=== PATIENT | female | born 1985 | race Caucasian/White ===

== ENCOUNTER 2018-10-17 20:29 | Emergency (ER) | payer BC, MEDICAID, OTHER ==
[2018-10-17] MEDS ORDERED: Sodium Chloride 0.9% 1,000 ML IV ONE (20:54)
[2018-10-17] MEDS ORDERED: Sodium Chloride 0.9% 10 ML Syringe FLUSH PRN (20:54)
--- NOTE | 2018-10-17 21:12 | EDM.PDOC ---
ED HPI GENERAL MEDICAL PROBLEM - General Chief Complaint: Syncope Stated Complaint: PASSED OUT Time Seen by Provider: 10/17/18 21:00 Source of Information: Reports: Patient, Family History Limitations: Reports: No Limitations - History of Present Illness INITIAL COMMENTS - FREE TEXT/NARRATIVE: Patient presents to the ED today with family, was out on boat this evening and reported she felt that she was going to "pass out". Patient then did, was lowered to the ground by her father, did not sustain any trauma. Patient c/o mild headache currently, family states she may have been out for a minimum of ten minutes, while she was, she had her fists clenched and was foaming at the mouth. Patient had has syncopal episodes in the past but none like this. Patient denies any seizure hx but has been a daily ETOH drinker until this past Friday and has not been feeling well since that time. Patient is not currently tremulous, she denies any intra oral injury, no incontinence of bowel/ bladder during today's event. Patient arrives here alert and oriented. Patient does take daily calcium, magnesium and potassium supplements. 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 ED EXAM, NEURO - Physical Exam Exam: See Below Exam Limited By: No Limitations General Appearance: Alert, WD/WN, No Apparent Distress Eye Exam: Bilateral Eye: EOMI, PERRL Ears: Normal External Exam, Normal Canal Nose: Normal Inspection Throat/Mouth: Normal Oropharynx, No Airway Compromise Head Exam: Atraumatic, Normocephalic Neck: Normal Inspection, Supple, Non-Tender. No: Tender Midline Respiratory/Chest: No Respiratory Distress, Lungs Clear, Normal Breath Sounds, Other (mild tenderness noted to left lower anterior rib region) Cardiovascular: Normal Peripheral Pulses, Tachycardia GI/Abdominal: Normal Bowel Sounds, Soft, Non-Tender Neurological: Alert, Normal Mood/Affect, No Motor/Sensory Deficits, Oriented x 3 , Other (no tremor, no tongue vesiculations) Extremities: Normal Inspection Psychiatric: Normal Affect, Normal Mood Skin Exam: Warm, Dry, Intact Course - Vital Signs Last Recorded V/S: Last Vital Signs Temp 36.2 C 10/17/18 20:53 Pulse 90 10/17/18 21:17 Resp 23 H 10/17/18 21:17 BP 117/75 10/17/18 21:17 Pulse Ox 99 10/17/18 20:53 Lizette is a 33 year old female, hx of chronic ETOH use, presents to the ED today after having a syncopal episode, given recent history in light of her drinking I am wondering if patient actually had an ETOH withdrawal seizure. Patient had no intra-oral injury, no incontinence and she is normotensive here, no tachycardia. Patient is not tremulous, no tongue vesiculations. Patient was given IV fluids here. Blood work obtained and check given her hx of hypokalemia and hypomagnesemia. CBC returns with plt count of 116, white count normal, left shift, hgb stable at 12.9. BMP returns with sodium of 137, potassium of 2.8, chloride of 98, and magnesium of 1.3. Patient given IV and oral potassium replacement. EKG here shows a sinus tachycardia with no ectopy or ischemia. Patient was given 2 grams of IV magnesium. Feeling better here. Able to tolerate oral fluids. Declined mediation for her headache, no need for benzodiazepines. CT of head negative for any acute findings. I feel patient is stable to be discharged home. Encouraged hydration, continue with electrolyte replacement at home, including potassium. Would like her labs rechecked in clinic this next week. I did discuss with patient in detail reasons to return to the ED. She is agreeable to plan of care and discharged in stable condition. If episodes such as what happened earlier this evening re- occur I would recommend neurology outpatient referral. Patient declined any out patient resources for her drinking. - Orders/Labs/Meds Orders: Active Orders 24 hr Category Date Time Status EKG Documentation Completion [RC] ASDIRECTED Care 10/17/18 20:55 Active Peripheral IV Care [RC] . DIRECTED Care 10/17/18 20:54 Active Magnesium Sulfate/Water [Magnesium Sulfate in Water Med 10/17/18 21:25 Active Premix] 2 gm Premix Bag 1 bag IV ONETIME Potassium Chloride 20 meq Med 10/17/18 21:24 Active Lidocaine 1% [Xylocaine 1%] 2 ml Sodium Chloride 0.9% [Normal Saline] 100 ml IV ONETIME Sodium Chloride 0.9% [Saline Flush] Med 10/17/18 20:54 Active 10 ml FLUSH ASDIRECTED PRN Peripheral IV Insertion Adult [OM.PC] Routine Oth 10/17/18 20:54 Ordered EKG 12 Lead [EK] Routine Ther 10/17/18 20:55 Ordered Medication Orders Potassium Chloride 20 meq/Lidocaine HCl 2 ml/ Sodium Chloride 112 mls @ 50 mls/ hr IV ONETIME ONE Stop: 10/17/18 23:38 Last Admin: 10/17/18 22:02 Dose: 50 mls/hr Magnesium Sulfate 2 gm/ Premix 50 mls @ 12.5 mls/hr IV ONETIME ONE Stop: 10/18/18 01:24 Last Admin: 10/17/18 21:43 Dose: 12.5 mls/hr Sodium Chloride (Saline Flush) 10 ml FLUSH ASDIRECTED PRN PRN Reason: Keep Vein Open Labs: Laboratory Tests 10/17/18 10/17/18 Range/Units 21:05 21:05 WBC 6.6 (4.5-11.0) K/uL RBC 3.93 (3.30-5.50) M/uL Hgb 12.9 (12.0-15.0) g/dL Hct 39.2 (36.0-48.0) % MCV 100 H (80-98) fL MCH 33 H (27-31) pg MCHC 33 (32-36) % Plt Count 116 L (150-400) K/uL Neut % (Auto) 73 H (36-66) % Lymph % (Auto) 13 L (24-44) % [place] % (Auto) 7 H (2-6) % Eos % (Auto) 6 H (2-4) % Baso % (Auto) 1 (0-1) % Sodium 137 L (140-148) mmol/L Potassium 2.8 L* (3.6-5.2) mmol/L Chloride 98 L (100-108) mmol/L Carbon Dioxide 29 (21-32) mmol/L Anion Gap 12.8 (5.0-14.0) mmol/L BUN 6 L D (7-18) mg/dL Creatinine 0.5 L (0.6-1.0) mg/dL Est Cr Clr Drug Dosing 134.39 mL/min Estimated GFR (MDRD) > 60 (>60) Glucose 111 H (74-106) mg/dL Calcium 8.5 (8.5-10.1) mg/dL Magnesium 1.3 L D (1.8-2.4) mg/dL Meds: Medications Generic Name Dose Route Start Last Admin Trade Name Freq PRN Reason Stop Dose Admin Potassium Chloride 20 meq/ 112 mls @ 50 mls/hr 10/17/18 21:24 10/17/18 22:02 Lidocaine HCl 2 ml/ Sodium IV 10/17/18 23:38 50 mls/hr Chloride ONETIME ONE Administration Magnesium Sulfate 2 gm/ Premix 50 mls @ 12.5 mls/hr 10/17/18 21:25 10/17/18 21:43 IV 10/18/18 01:24 12.5 mls/hr ONETIME ONE Administration Sodium Chloride 10 ml 10/17/18 20:54 Saline Flush FLUSH ASDIRECTED PRN Keep Vein Open Discontinued Medications Generic Name Dose Route Start Last Admin Trade Name Freanshul PRN Reason Stop Dose Admin Sodium Chloride 1,000 mls @ 999 mls/hr 10/17/18 20:54 10/17/18 21:37 Normal Saline IV 10/17/18 21:54 999 mls/hr .BOLUS ONE Administration Potassium Chloride Confirm 10/17/18 21:42 10/17/18 22:03 Kcl 20 Meq In Water 100 Ml Administered 10/17/18 21:43 Not Given Dose 100 mls @ as directed .ROUTE .STK-MED ONE Potassium Chloride 40 meq 10/17/18 21:24 10/17/18 21:42 Klor-Con M20 PO 10/17/18 21:25 40 meq ONETIME ONE Administration Departure - Departure Time of Disposition: 23:30 Disposition: Home, Self-Care 01 Condition: Good Clinical Impression: Hypomagnesemia, Hypokalemia Syncope Qualifiers: Syncope type: unspecified Qualified Code(s): R55 - Syncope and collapse - Discharge Information Instructions: Syncope, [id number], Potassium Content of Foods, Hypomagnesemia , Hypokalemia Referrals: PCP,None [Primary Care Provider] - Forms: ED Department Discharge Additional Instructions: Stay well hydrated. Continue oral Magnesium, Potassium and Multiple Vitamin supplements at home. Have your Magnesium and Potassium levels rechecked at primary care clinic later this next week. Return here with any concerns or worsening symptoms. Take care and good luck with everything. - My Orders Last 24 Hours: My Active Orders 10/17/18 20:54 Peripheral IV Care [RC] . DIRECTED Sodium Chloride 0.9% [Saline Flush] 10 ml FLUSH ASDIRECTED PRN Peripheral IV Insertion Adult [OM.PC] Routine 10/17/18 20:55 EKG Documentation Completion [RC] ASDIRECTED EKG 12 Lead [EK] Routine 10/17/18 21:24 Potassium Chloride 20 meq Lidocaine 1% [Xylocaine 1%] 2 ml Sodium Chloride 0.9 % [Normal Saline] 100 ml IV ONETIME 10/17/18 21:25 Magnesium Sulfate/Water [Magnesium Sulfate in Water Premix] 2 gm Premix Bag 1 bag IV ONETIME - Assessment/Plan Last 24 Hours: My Active Orders 10/17/18 20:54 Peripheral IV Care [RC] . DIRECTED Sodium Chloride 0.9% [Saline Flush] 10 ml FLUSH ASDIRECTED PRN Peripheral IV Insertion Adult [OM.PC] Routine 10/17/18 20:55 EKG Documentation Completion [RC] ASDIRECTED EKG 12 Lead [EK] Routine 10/17/18 21:24 Potassium Chloride 20 meq Lidocaine 1% [Xylocaine 1%] 2 ml Sodium Chloride 0.9 % [Normal Saline] 100 ml IV ONETIME 10/17/18 21:25 Magnesium Sulfate/Water [Magnesium Sulfate in Water Premix] 2 gm Premix Bag 1 bag IV ONETIME
[2018-10-17] MEDS ORDERED: Potassium Chloride 20 MEQ, Lidocaine 1% 2 ML in Sodium Chloride 0.9% 100 ML IV ONE (21:24)
[2018-10-17] MEDS ORDERED: Potassium Chloride 20 MEQ Tab.ER PO ONE (21:24)
[2018-10-17] MEDS ORDERED: Magnesium Sulfate/Water 2 GM in Premix Bag 1 BAG IV ONE (21:25)
[2018-10-17] MEDS ORDERED: Potassium Chloride 100 ML ONE (21:42)
--- NOTE | 2018-10-17 22:16 | CRLCT ---
INDICATION: Seizure versus syncope TECHNIQUE: Noncontrast CT of the brain was performed with images acquired from skull base to vertex. COMPARISON: None available. FINDINGS: There is no acute intracranial hemorrhage. Ventricles are of normal size and morphology. No mass effect or midline shift is present. The mendiola-white matter differentiation is normal. The visualized portions of the orbits are normal. The visualized portions of the mastoids are normal. The visualized portions of the paranasal sinuses are normal. No fractures are identified. IMPRESSION: Normal head CT Please note that all CT scans at this facility use dose modulation, iterative reconstruction, and/or weight-based dosing when appropriate to reduce radiation dose to as low as reasonably achievable. Dictated by Cj Rhodes MD @ Oct 17 2018 10:45PM Signed by Dr. Cj Rhodes @ Oct 17 2018 10:47PM
== END 2018-10-17 23:46 | disposition home or self-care (01) ==
LOC: JP.ED 20:29
DX: R55 Syncope and collapse (principal); E87.6 Hypokalemia; E83.42 Hypomagnesemia; F17.210 Nicotine dependence, cigarettes, uncomplicated
CPT/HCPCS: 36415; 70450; 80048; 83735; 85025; 93005; 96365; 96366; 96368; 99284; A9270; J2001; J3475; J3480; J7030; 93010; 99283

== ENCOUNTER 2018-11-09 02:12 | Inpatient (IN) | payer OTHER ==
[2018-11-09] MEDS ORDERED: Sodium Chloride 0.9% 10 ML Syringe FLUSH PRN (02:55)
[2018-11-09] MEDS ORDERED: fentaNYL 100 MCG/2 ML SDV IVPUSH ONE (02:56)
[2018-11-09] MEDS ORDERED: Ondansetron 4 MG/2 ML SDV IVPUSH ONE (02:56)
--- NOTE | 2018-11-09 02:58 | EDM.PDOC ---
ED HPI GENERAL MEDICAL PROBLEM - General Chief Complaint: Abdominal Pain Stated Complaint: MEDICAL [facility] Time Seen by Provider: 11/09/18 02:47 Source of Information: Reports: Patient, Old Records, RN Notes Reviewed History Limitations: Reports: No Limitations - History of Present Illness INITIAL COMMENTS - FREE TEXT/NARRATIVE: 33-year-old female presents emergency department today via EMS services, with a complaint of abdominal pain, she is a difficult historian states the abdominal pain has been going on for several months however it's has gotten particularly worse over the last couple of days. 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: Psychiatric History: Reports: Addiction - Infectious Disease History Infectious Disease History: Reports: Chicken Pox Social & Family History - Family History Family Medical History: Noncontributory - Tobacco Use Smoking Status *Q: Current Every Day Smoker Years of Tobacco use: 17 Packs/Tins Daily: 1 - Caffeine Use Caffeine Use: Reports: Soda - Recreational Drug Use Recreational Drug Use: No ED ROS GENERAL - Review of Systems Review Of Systems: See Below Constitutional: Reports: No Symptoms HEENT: Reports: No Symptoms Respiratory: Reports: No Symptoms Cardiovascular: Reports: No Symptoms GI/Abdominal: Reports: Abdominal Pain, Nausea. Denies: Vomiting : Reports: No Symptoms Musculoskeletal: Reports: No Symptoms Skin: Reports: No Symptoms ED EXAM, GI/ABD - Physical Exam Exam: See Below Exam Limited By: No Limitations General Appearance: Alert, Mild Distress Respiratory/Chest: No Respiratory Distress, Lungs Clear, Normal Breath Sounds, No Accessory Muscle Use, Chest Non-Tender Cardiovascular: Regular Rate, Rhythm, No Murmur GI/Abdominal Exam: Soft, Tender Back Exam: Normal Inspection, Full Range of Motion. No: CVA Tenderness (R), CVA Tenderness (L) Course - Vital Signs Last Recorded V/S: Last Vital Signs Temp 96.1 F 11/09/18 02:35 Pulse 76 11/09/18 05:17 Resp 16 11/09/18 05:17 BP 111/60 11/09/18 05:17 Pulse Ox 97 11/09/18 05:17 - Orders/Labs/Meds Orders: Active Orders 24 hr Category Date Time Status Lactated Ringers [Ringers, Lactated] 1,000 ml Med 11/09/18 03:00 Active IV ASDIRECTED Sodium Chloride 0.9% [Saline Flush] Med 11/09/18 02:55 Active 10 ml FLUSH ASDIRECTED PRN Peripheral IV Insertion Adult [OM.PC] Urgent Oth 11/09/18 02:55 Ordered Medication Orders Lactated Ringer's (Ringers, Lactated) 1,000 mls @ 999 mls/hr IV ASDIRECTED JUANA Last Admin: 11/09/18 03:26 Dose: 999 mls/hr Sodium Chloride (Saline Flush) 10 ml FLUSH ASDIRECTED PRN PRN Reason: Keep Vein Open Last Admin: 11/09/18 03:44 Dose: 10 ml Labs: Laboratory Tests 11/09/18 11/09/18 11/09/18 Range/Units 02:20 03:09 03:09 WBC 11.5 H (4.5-11.0) K/uL RBC 3.79 (3.30-5.50) M/uL Hgb 12.8 (12.0-15.0) g/dL Hct 38.5 (36.0-48.0) % MCV 102 H (80-98) fL MCH 34 H (27-31) pg MCHC 33 (32-36) % Plt Count 319 (150-400) K/uL Neut % (Auto) 69 H (36-66) % Lymph % (Auto) 13 L (24-44) % [place] % (Auto) 7 H (2-6) % Eos % (Auto) 10 H (2-4) % Baso % (Auto) 1 (0-1) % PT 10.4 (9.5-12.0) sec INR 0.96 (0.80-1.20) Sodium (140-148) mmol/L Potassium (3.6-5.2) mmol/L Chloride (100-108) mmol/L Carbon Dioxide (21-32) mmol/L Anion Gap (5.0-14.0) mmol/L BUN (7-18) mg/dL Creatinine (0.6-1.0) mg/dL Est Cr Clr Drug Dosing mL/min Estimated GFR (MDRD) (>60) Glucose (74-106) mg/dL Lactic Acid (0.4-2.0) mmol/L Calcium (8.5-10.1) mg/dL Total Bilirubin (0.2-1.0) mg/dL AST (15-37) U/L ALT (12-78) U/L Alkaline Phosphatase (46-116) U/L Total Protein (6.4-8.2) g/dL Albumin (3.4-5.0) g/dL Globulin (2.3-3.5) g/dL Albumin/Globulin Ratio (1.2-2.2) Lipase (73-393) U/L Urine Color (YELLOW) Urine Appearance (CLEAR) Urine pH (5.0-8.0) Ur Specific [place] (1.008-1.030) Urine Protein (NEGATIVE) mg/dL Urine Glucose (UA) (NEGATIVE) mg/dL Urine Ketones (NEGATIVE) mg/dL Urine Occult Blood (NEGATIVE) Urine Nitrite (NEGATIVE) Urine Bilirubin (NEGATIVE) Urine Urobilinogen (0.2-1.0) EU/dL Ur Leukocyte Esterase (NEGATIVE) Urine RBC (0-5) Urine WBC (0-5) Ur Epithelial Cells Amorphous Sediment Urine Bacteria Urine Mucus Urine HCG, Qual Urine Opiates Screen (NEGATIVE) Ur Oxycodone Screen (NEGATIVE) Urine Methadone Screen (NEGATIVE) Ur Propoxyphene Screen (NEGATIVE) Ur Barbiturates Screen (NEGATIVE) Ur Tricyclics Screen (NEGATIVE) Ur Phencyclidine Scrn (NEGATIVE) Ur Amphetamine Screen (NEGATIVE) U Methamphetamines Scrn (NEGATIVE) Urine MDMA Screen (NEGATIVE) U Benzodiazepines Scrn (NEGATIVE) U Cocaine Metab Screen (NEGATIVE) U Marijuana (THC) Screen (NEGATIVE) Ethyl Alcohol < 3 mg/dL 11/09/18 11/09/18 11/09/18 Range/Units 03:09 03:09 03:29 WBC (4.5-11.0) K/uL RBC (3.30-5.50) M/uL Hgb (12.0-15.0) g/dL Hct (36.0-48.0) % MCV (80-98) fL MCH (27-31) pg MCHC (32-36) % Plt Count (150-400) K/uL Neut % (Auto) (36-66) % Lymph % (Auto) (24-44) % [place] % (Auto) (2-6) % Eos % (Auto) (2-4) % Baso % (Auto) (0-1) % PT (9.5-12.0) sec INR (0.80-1.20) Sodium 140 (140-148) mmol/L Potassium 3.6 (3.6-5.2) mmol/L Chloride 102 (100-108) mmol/L Carbon Dioxide 32 (21-32) mmol/L Anion Gap 6.1 (5.0-14.0) mmol/L BUN 6 L (7-18) mg/dL Creatinine 0.5 L (0.6-1.0) mg/dL Est Cr Clr Drug Dosing 147.14 mL/min Estimated GFR (MDRD) > 60 (>60) Glucose 103 (74-106) mg/dL Lactic Acid 1.3 (0.4-2.0) mmol/L Calcium 8.7 (8.5-10.1) mg/dL Total Bilirubin 0.3 D (0.2-1.0) mg/dL AST 15 D (15-37) U/L ALT 18 (12-78) U/L Alkaline Phosphatase 75 (46-116) U/L Total Protein 6.7 (6.4-8.2) g/dL Albumin 3.0 L (3.4-5.0) g/dL Globulin 3.7 H (2.3-3.5) g/dL Albumin/Globulin Ratio 0.8 L (1.2-2.2) Lipase 286 (73-393) U/L Urine Color Yellow (YELLOW) Urine Appearance Clear (CLEAR) Urine pH 8.5 H (5.0-8.0) Ur Specific [place] 1.015 (1.008-1.030) Urine Protein Negative (NEGATIVE) mg/dL Urine Glucose (UA) Normal (NEGATIVE) mg/dL Urine Ketones Negative (NEGATIVE) mg/dL Urine Occult Blood Trace (NEGATIVE) Urine Nitrite Negative (NEGATIVE) Urine Bilirubin Negative (NEGATIVE) Urine Urobilinogen Normal (0.2-1.0) EU/dL Ur Leukocyte Esterase Trace H (NEGATIVE) Urine RBC 0-5 (0-5) Urine WBC 0-5 (0-5) Ur Epithelial Cells Few Amorphous Sediment Not seen Urine Bacteria Few Urine Mucus Not seen Urine HCG, Qual Urine Opiates Screen (NEGATIVE) Ur Oxycodone Screen (NEGATIVE) Urine Methadone Screen (NEGATIVE) Ur Propoxyphene Screen (NEGATIVE) Ur Barbiturates Screen (NEGATIVE) Ur Tricyclics Screen (NEGATIVE) Ur Phencyclidine Scrn (NEGATIVE) Ur Amphetamine Screen (NEGATIVE) U Methamphetamines Scrn (NEGATIVE) Urine MDMA Screen (NEGATIVE) U Benzodiazepines Scrn (NEGATIVE) U Cocaine Metab Screen (NEGATIVE) U Marijuana (THC) Screen (NEGATIVE) Ethyl Alcohol mg/dL 11/09/18 11/09/18 Range/Units 03:29 03:29 WBC (4.5-11.0) K/uL RBC (3.30-5.50) M/uL Hgb (12.0-15.0) g/dL Hct (36.0-48.0) % MCV (80-98) fL MCH (27-31) pg MCHC (32-36) % Plt Count (150-400) K/uL Neut % (Auto) (36-66) % Lymph % (Auto) (24-44) % [place] % (Auto) (2-6) % Eos % (Auto) (2-4) % Baso % (Auto) (0-1) % PT (9.5-12.0) sec INR (0.80-1.20) Sodium (140-148) mmol/L Potassium (3.6-5.2) mmol/L Chloride (100-108) mmol/L Carbon Dioxide (21-32) mmol/L Anion Gap (5.0-14.0) mmol/L BUN (7-18) mg/dL Creatinine (0.6-1.0) mg/dL Est Cr Clr Drug Dosing mL/min Estimated GFR (MDRD) (>60) Glucose (74-106) mg/dL Lactic Acid (0.4-2.0) mmol/L Calcium (8.5-10.1) mg/dL Total Bilirubin (0.2-1.0) mg/dL AST (15-37) U/L ALT (12-78) U/L Alkaline Phosphatase (46-116) U/L Total Protein (6.4-8.2) g/dL Albumin (3.4-5.0) g/dL Globulin (2.3-3.5) g/dL Albumin/Globulin Ratio (1.2-2.2) Lipase (73-393) U/L Urine Color (YELLOW) Urine Appearance (CLEAR) Urine pH (5.0-8.0) Ur Specific [place] (1.008-1.030) Urine Protein (NEGATIVE) mg/dL Urine Glucose (UA) (NEGATIVE) mg/dL Urine Ketones (NEGATIVE) mg/dL Urine Occult Blood (NEGATIVE) Urine Nitrite (NEGATIVE) Urine Bilirubin (NEGATIVE) Urine Urobilinogen (0.2-1.0) EU/dL Ur Leukocyte Esterase (NEGATIVE) Urine RBC (0-5) Urine WBC (0-5) Ur Epithelial Cells Amorphous Sediment Urine Bacteria Urine Mucus Urine HCG, Qual Negative Urine Opiates Screen Negative (NEGATIVE) Ur Oxycodone Screen Negative (NEGATIVE) Urine Methadone Screen Negative (NEGATIVE) Ur Propoxyphene Screen Negative (NEGATIVE) Ur Barbiturates Screen Negative (NEGATIVE) Ur Tricyclics Screen Negative (NEGATIVE) Ur Phencyclidine Scrn Negative (NEGATIVE) Ur Amphetamine Screen Negative (NEGATIVE) U Methamphetamines Scrn Negative (NEGATIVE) Urine MDMA Screen Negative (NEGATIVE) U Benzodiazepines Scrn Negative (NEGATIVE) U Cocaine Metab Screen Negative (NEGATIVE) U Marijuana (THC) Screen Presumptive positive H (NEGATIVE) Ethyl Alcohol mg/dL Meds: Medications Generic Name Dose Route Start Last Admin Trade Name Freq PRN Reason Stop Dose Admin Lactated Ringer's 1,000 mls @ 999 mls/hr 11/09/18 03:00 11/09/18 03:26 Ringers, Lactated IV 999 mls/hr ASDIRECTED JUANA Administration Sodium Chloride 10 ml 11/09/18 02:55 11/09/18 03:44 Saline Flush FLUSH 10 ml ASDIRECTED PRN Administration Keep Vein Open Discontinued Medications Generic Name Dose Route Start Last Admin Trade Name Freq PRN Reason Stop Dose Admin Fentanyl 50 mcg 11/09/18 02:56 11/09/18 03:28 Sublimaze IVPUSH 11/09/18 02:57 50 mcg ONETIME ONE Administration Hydromorphone HCl 1 mg 11/09/18 03:56 11/09/18 04:04 Dilaudid IVPUSH 11/09/18 03:57 1 mg ONETIME ONE Administration Hydromorphone HCl 1 mg 11/09/18 05:39 11/09/18 05:45 Dilaudid IVPUSH 11/09/18 05:40 1 mg ONETIME ONE Administration Hydromorphone HCl Confirm 11/09/18 05:41 Dilaudid Administered 11/09/18 05:42 Dose 1 mg .ROUTE .STK-MED ONE Sodium Chloride 70 mls @ 3 mls/sec 11/09/18 04:22 11/09/18 04:32 Normal Saline IV 11/09/18 04:23 3 mls/sec ASDIRECTED STA Administration Iopamidol 100 ml 11/09/18 04:22 11/09/18 04:32 Isovue-300 (61%) IV 11/09/18 04:23 100 ml . DIRECTED STA Administration Lorazepam 1 mg 11/09/18 06:16 Ativan IVPUSH 11/09/18 06:17 ONETIME ONE Ondansetron HCl 4 mg 11/09/18 02:56 11/09/18 03:27 Zofran IVPUSH 11/09/18 02:57 4 mg ONETIME ONE Administration Departure - Departure Time of Disposition: 06:22 Disposition: Admitted As Inpatient 67 Condition: Fair Clinical Impression: Pancreatic pseudocyst - Discharge Information Referrals: Esperanza Hanks MD [Primary Care Provider] - Forms: ED Department Discharge - My Orders Last 24 Hours: My Active Orders 11/09/18 02:55 Sodium Chloride 0.9% [Saline Flush] 10 ml FLUSH ASDIRECTED PRN Peripheral IV Insertion Adult [OM.PC] Urgent 11/09/18 03:00 Lactated Ringers [Ringers, Lactated] 1,000 ml IV ASDIRECTED - Assessment/Plan Last 24 Hours: My Active Orders 11/09/18 02:55 Sodium Chloride 0.9% [Saline Flush] 10 ml FLUSH ASDIRECTED PRN Peripheral IV Insertion Adult [OM.PC] Urgent 11/09/18 03:00 Lactated Ringers [Ringers, Lactated] 1,000 ml IV ASDIRECTED Plan: Assessment Acuity = acute on chronic Site and laterality = pancreatic pseudocyst 5.4 x 7.6 x 7.4 cm multiloculated Etiology = probably related to pancreatitis and alcohol Manifestations = abdominal pain Location of injury = Home Lab values = CBC CMP and lipase unremarkable urinalysis unremarkable urine drug screen positive for cannabis alcohol level was negative CT scan describes the pseudocyst above Plan Called discussed case Dr. Pappas at 6:15 felt she was possibly a candidate for surgical intervention depending upon image studies and review recommend admission by hospitalist service for pain control at this time and medical management. I then called discussed case Dr. Mandel at [phone] he agreed to come and evaluate the patient in the hospital for admission This note was dictated using [employer] voice recognition software please call with any questions on syntax or grammar.
[2018-11-09] MEDS ORDERED: Lactated Ringers 1,000 ML IV SCH (03:00)
[2018-11-09] MEDS ORDERED: HYDROmorphone 1 MG/ML Syringe IVPUSH ONE ×2 (03:56→05:39)
[2018-11-09] MEDS ORDERED: Iopamidol 612 MG/ML 100 ML Bottle IV STA (04:22)
[2018-11-09] MEDS ORDERED: HYDROmorphone 1 MG/ML Syringe ONE (05:41)
--- NOTE | 2018-11-09 05:43 | CRLCT ---
INDICATION: Left upper quadrant pain history of pancreatitis and alcohol use TECHNIQUE: CT abdomen and pelvis acquired with 100 cc Isovue-300 IV contrast. COMPARISON: None FINDINGS: There is a small left pleural effusion with compressive atelectasis at the left lung base. There is a 5.2 x 7.6 x 7.4 cm multiloculated fluid collection abutting the distal tail of the pancreas and the upper pole of the left kidney. A portion of the fluid collection extends posterior to the left fuentes diaphragm and directly abuts the posterior aspect of the proximal abdominal aorta. There is also thickening and a small amount of fluid along the right hemidiaphragm at the level of the diaphragmatic waldo. There is a 1.4 x 1.3 cm hypodense lesion in the pancreatic head. The splenic vein is patent. Normal gallbladder. There is some ill-defined fat stranding around the left kidney. Normal right kidney and right adrenal gland. The left adrenal gland is not clearly seen. The bowel is unremarkable. There are some regional areas of hypoattenuation in the liver likely representing fatty focal infiltration. 1.8 cm cystic lesion in the right adnexal likely represents a physiologic ovarian cysts. Trace amount of free fluid in the pelvis. Significant thickening of the phillip of the urinary bladder with surrounding fat stranding. Osseous structures are intact. IMPRESSION: There is a multiloculated fluid collection in the left upper quadrant which extends from the posterior aspect of the pancreas, the superior aspect of the left kidney, and involves the medial aspects of the diaphragms at the level of the diaphragmatic waldo. This likely represents a pancreatic pseudocyst. Another hypodense lesion is seen within the pancreas. Significant wall thickening of the urinary bladder concerning for acute cystitis. Fat stranding around the left kidney could represent pyelonephritis versus secondary inflammatory changes related to the likely pancreatic pseudocyst. Small left pleural effusion. Findings discussed with Officer at 5:38 a.m. on November 09, 2018. Please note that all CT scans at this facility use dose modulation, iterative reconstruction, and/or weight-based dosing when appropriate to reduce radiation dose to as low as reasonably achievable. Dictated by Esperanza Orosco MD @ Nov 09 2018 5:42AM Signed by Dr. Esperanza Orosco @ Nov 09 2018 5:42AM
[2018-11-09] MEDS ORDERED: LORazepam 2 MG/ML SDV IVPUSH ONE (06:16)
[2018-11-09] MEDS ORDERED: diphenhydrAMINE 25 MG Cap PO PRN (06:43)
[2018-11-09] MEDS ORDERED: Naloxone 0.4 MG/ML SDV IVPUSH PRN (06:43)
[2018-11-09] MEDS ORDERED: diphenhydrAMINE 50 MG/ML SDV IVPUSH PRN (06:43)
[2018-11-09] MEDS ORDERED: HYDROmorphone/Normal Saline 15 MG/30 ML PCA IV SCH (06:45)
[2018-11-09] MEDS ORDERED: HYDROmorphone/Normal Saline 15 MG/30 ML PCA IV PRN (07:32)
--- NOTE | 2018-11-09 07:55 | HP ---
IDENTIFYING DATA: Lizette So is a 33-year-old single female from [place], [place]. CHIEF COMPLAINT: Abdominal pain. HISTORY OF PRESENT ILLNESS: Adult female has a longstanding history of chronic relapsing abdominal pain secondary to pancreatitis of chronic alcohol abuse. She has been hospitalized on multiple occasions for acute pancreatitis, most recently at [facility] in [place] in February of 2018. She reports ongoing chronic abdominal discomfort, gradually increasing in severity over the last several weeks with heightened pain as well as anorexia, nausea and emesis. She presented to the emergency room for evaluation this morning, concerned of the potential of recurrent pancreatitis. She reports she did eat yesterday having 1 standard meal in the evening as well as repeated snacks during the day. She has had no hematemesis, diarrhea, melena, or hematochezia. Does find that spicy foods and greasy foods tend to exacerbate her abdominal pain. She admits to chronic problems with alcoholism, noting most recent alcohol use was on October 24. Prior to that had been drinking 6 or more drinks daily, having recently switched from hard liquor to beer. Additionally, she reports a history of marijuana use. Denies other illicit drug use. PAST MEDICAL HISTORY: No previous surgeries. G1, P1 female. Hospitalizations only for her previous vaginal delivery and episodes of pancreatitis. ALLERGIES: REPORTED TO GABAPENTIN. MEDICATIONS: Icts-aae-tisbeye use of Pepto-Bismol. No relief of symptoms with use of Tylenol, aspirin, or nonsteroidal agents. HABITS: Tobacco use of one-half pack of cigarettes per day. Caffeinated beverage intake averages 2 cans of carbonated beverages daily. Alcohol use as above. None for 2 weeks time. She denies illicit drug use, though does admit to intermittent marijuana use with positive urine drug screen identified today. SOCIAL HISTORY: Does have a history of chronic alcohol use with legal infractions including DUI. She has a court mandated use of a Breathalyzer at the current time with a court hearing for final sentencing upcoming on November 30. She reports she has had previous involvement in outpatient alcohol treatment programs in [place]. Last involvement was approximately 2 years ago. She is currently unemployed. An acquaintance accompanies her today. FAMILY HISTORY: Noncontributory. REVIEW OF SYSTEMS: NEUROLOGIC: No history of stroke, seizures, paresthesias, headaches, cataracts, glaucoma, or hearing changes. CARDIAC: Denies hypertension, diabetes, congenital heart disease, rheumatic fever, heart murmur, chest pain, palpitations, syncope, or GA. RESPIRATORY: No history of asthma, emphysema, chronic cough, or recent URIs. GASTROINTESTINAL: As above. Denies a history of hepatitis or jaundice. No history of gallbladder disease. GENITOURINARY: Menses have been irregular, had used Depo-Provera for approximate period of 10 years, discontinued last year. Recently had appointment scheduled with [facility] for evaluation of an abnormal Pap smear. MUSCULOSKELETAL: Intermittent swelling and stiffness of the right knee. Otherwise, unremarkable. PHYSICAL EXAMINATION: GENERAL: Appearance is that of a young adult female, mildly restless. Orientation is intact. VITAL SIGNS: On admission; temperature 96.1 degree Fahrenheit, pulse rate 76, respiratory rate 16, blood pressure 111/60, and O2 saturations 97% on room air. HEENT: Hearing is intact. Pupils reactive to light. Sclerae anicteric. Extraocular eye movements intact. No nasal congestion. Oral mucosa is somewhat dry in appearance. No lesions. NECK: No adenopathy, thyromegaly, or JVD. Brisk carotid pulses. No bruits. LUNGS: Clear, resonant, non-tachypneic, symmetrical aeration. HEART: Regular without murmurs or gallops noted. ABDOMEN: Nondistended. Active sounds are heard. No palpable organomegaly. No guarding, rebound, or referred pain. No localized tenderness. No CVA pain. Subjectively notes pain at the left upper quadrant of the abdomen. GENITOURINARY: Omitted. RECTAL: Omitted. EXTREMITIES: Warm and pink. Tattoos are present. Non-jaundice. No pitting edema. Good arterial pulses. No skin lesions. LABORATORY DATA: On admission; WBC 11.5, hemoglobin 12.8, hematocrit 38.5, and platelet count 319,000. INR 0.96. Sodium 140, potassium 3.6, BUN 6, creatinine 0.5, GFR greater than 60. Lactic acid 1.3, calcium 8.7, AST 15, alkaline phosphatase 75, and lipase 286. Urinalysis, specific gravity of 1.015, negative protein and ketones, 0-5 rbc's, 0-5 wbc's, few bacteria. Urine HCG is negative. Urine drug screen positive for THC. IMAGING STUDIES: CT of the abdomen obtained revealing a 5.4 x 7.6 x 7.4 cm pancreatic pseudocyst. IMPRESSION: 1. Upper abdominal pain likely secondary to pancreatic pseudocyst. 2. History of recurrent pancreatitis secondary to chronic alcohol abuse. 3. Alcohol abuse with recent legal repercussions to include DUI with upcoming sentencing pending on 11/30/2018. PLAN: The patient will be admitted for pain management. We will provide IV fluids. Maintain n.p.o. status and administer hydromorphone by W[employer] PROCESS[employer] TECHNICIAN pump for short-term pain management. Surgical services have been consulted to evaluate for potential treatment options for recognized pseudocyst. Did discuss briefly the need to pursue further alcohol treatment as an outpatient following discharge. She notes she has been involved in AA and anticipates court mandated outpatient rehab services following her upcoming sentencing. Full code status will be maintained. Followup labs including CBC, metabolic panel, and lipase as well as serum magnesium have been requested. Otf Mandel MD /[id number]
[2018-11-09] MEDS: Ondansetron 4 MG/2 ML SDV IVPUSH PRN ×2 (11:08→23:09)
[2018-11-09] MEDS: Lactated Ringers 1,000 ML IV SCH ×2 (11:35→19:45)
[2018-11-09] MEDS ORDERED: Nicotine Polacrilex 2 MG Gum CHEW PRN (18:42)
[2018-11-09] MEDS: oxyCODONE 5 MG Tab PO PRN ×2 (19:43→23:53)
[2018-11-09] MEDS: Nicotine 14 MG/24 Hr Patch TRDERM SCH (20:20)
[2018-11-10] MEDS: Lactated Ringers 1,000 ML IV SCH (03:49)
[2018-11-10] MEDS: oxyCODONE 5 MG Tab PO PRN (05:09)
[2018-11-10] MEDS: Magnesium Sulfate/Water 2 GM in Premix Bag 1 BAG IV SCH ×2 (08:45→10:37)
[2018-11-10] MEDS: Nicotine 14 MG/24 Hr Patch TRDERM SCH (08:46)
--- NOTE | 2018-11-10 13:01 | CRLMR ---
INDICATION: Possible pancreatic pseudocyst. COMPARISON: CT scan of the abdomen and pelvis dated 09 November 2018. TECHNIQUE: MRCP with heavily T2 weighted 2D and 3D MRCP images. Axial T1 in- and out of phase and T2 weighted images also performed. No gadolinium administered. FINDINGS: Mild focal fatty infiltration in the lower portion of segment 4 of the liver. No other fatty infiltration of the liver. The wedge-shaped area of decreased enhancement in segment 8 of the liver is not well visualized on this noncontrast study. No other focal abnormalities identified in the visualized portions of the liver, spleen, and kidneys. No hydronephrosis. 7.6 x 4.8 cm fluid collection in the lesser sac is unchanged. A few other smaller fluid collections in the retrocrural region and left perinephric space. Mild edema and Dalal`s pouch. 1.7 cm cyst in the head of the pancreas. The pancreas is otherwise unremarkable. No intra or extrahepatic bile duct dilation with the common bile duct measuring 4 mm. No filling defects in the biliary system. Normal size of the main pancreatic duct. IMPRESSION: 1. Fluid collection in the lesser sac with smaller adjacent fluid collections likely represent pseudocysts. 2. 1.7 cm probable intrapancreatic pseudocyst in the head of the pancreas. 3. No bile duct dilation. No choledocholithiasis. Normal size of the main pancreatic duct. Dictated by Beau Marrero MD @ 11/10/2018 12:59:33 PM Dictated by: Beau Marrero MD @ 11/10/2018 12:59:45 (Electronically Signed)
--- NOTE | 2018-11-11 09:33 | CONS ---
DATE OF SERVICE: 11/09/2018 REFERRING PHYSICIAN: CONSULTING PHYSICIAN: Brandon Pappas MD HISTORY OF PRESENT ILLNESS: Capsule of the cyst is fairly thick but not overly thick. There does not appear to be any obvious pancreatic ductal abnormalities per se. PAST MEDICAL/SURGICAL HISTORY: The patient's past medical history includes no previous abdominal surgeries. She underwent vaginal delivery. MEDICATIONS: Per Dr. Deepak Mejias and P. ALLERGIES: PER DR. DEEPAK Mejias AND P. SOCIAL HISTORY: Per Dr. Deepak Mejias and P. FAMILY HISTORY: Per Dr. Deepak Mejias and P. REVIEW OF SYSTEMS: Negative other than for the above-mentioned issues. PHYSICAL EXAMINATION: VITAL SIGNS: The patient is afebrile with stable vital signs. She has been receiving some pain medicine and is quite a bit more comfortable than earlier. ABDOMEN: Abdominal exam shows some fullness and discomfort in the left upper quadrant and left flank. Otherwise is unremarkable. IMPRESSION: That of a probable chronic pseudocyst. This measured up to around 7 cm and by history is probably the one that likely resolved a day prior to doing it surgically. We will get an MRCP in order to evaluate the pancreatic ductal system and at this point she would like to be discharged after the MRCP, which we will get tomorrow morning and then we will see her back in 48 hours to review the MRCP and develop a more definitive surgical plan, which can be likely done later this week. We will give her a trial of some diet today to make sure that we are not aspiration and the pain, and obtain an MRCP tomorrow morning and discharge her after that for followup on Friday. Brandon Pappas MD /[id number]
[2018-11-12] MEDS ORDERED: fentaNYL 250 MCG/5 ML SDV ONE ×2 (07:19→07:45)
[2018-11-12] MEDS ORDERED: Ondansetron 4 MG/2 ML SDV ONE (07:21)
[2018-11-12] MEDS ORDERED: Neostigmine Methylsulfate 1 MG/ML 5 ML Syringe ONE (07:21)
[2018-11-12] MEDS ORDERED: Rocuronium 50 MG/5 ML Vial ONE (07:21)
[2018-11-12] MEDS ORDERED: Dexamethasone 4 MG/ML SDV ONE (07:21)
[2018-11-12] MEDS ORDERED: Succinylcholine 200 MG/10 ML MDV ONE (07:21)
[2018-11-12] MEDS ORDERED: Propofol 200 MG/20 ML SDV ONE (07:21)
--- NOTE | 2018-11-12 07:46 | DISCH ---
FINAL DIAGNOSES: 1. Recurrent pancreatitis with development of chronic appearing pancreatic pseudocyst in pancreatic tail. 2. History of recurrent pancreatitis related to alcoholism. 3. Hypomagnesemia. SUMMARY: This is a 33-year-old presenting with increasing abdominal pain. She has had multiple episodes of pancreatitis in the past and had CT scan at the time of admission yesterday, which occurred due to increased amount of pain. She was noted to have a pseudocyst in the pancreatic tail. There is a mild wall thickness and by history is probably somewhere in the range of 6 weeks in terms of time of development. Size of the cyst is at around 7 cm. The patient underwent hydration and pain medication. Followup labs this morning showed no major problems other than a quite low magnesium, and she will be given 2 doses of magnesium sulfate IV prior to discharge and then put her on magnesium thereafter. Otherwise, we will discharge her home after the MRCP has been completed today and see her back in the clinic tomorrow to discuss definitive treatment plans. MEDICATIONS ON DISCHARGE: Include Percocet 5/325 one tablet q.4 hours p.r.n. pain, #50. We gave her that amount in anticipation of needing some postoperatively. Magnesium oxide 400 mg p.o. daily x3 months, #90.
[2018-11-12] MEDS ORDERED: Lactated Ringers 0 ML ONE (08:16)
== END 2018-11-10 12:30 | disposition home or self-care (01) | DRG 439 ==
LOC: JP.ED 02:12 → JP.MS 06:30
PROVIDERS: ADMIT Family Medicine; ATTEND Hospitalist
DX: K86.1 Other chronic pancreatitis (principal); K86.3 Pseudocyst of pancreas; E83.42 Hypomagnesemia; K21.9 Gastro-esophageal reflux disease without esophagitis; G89.29 Other chronic pain; F17.210 Nicotine dependence, cigarettes, uncomplicated; F10.20 Alcohol dependence, uncomplicated; Z88.8 Allergy status to other drugs, medicaments and biological substances; Y90.9 Presence of alcohol in blood, level not specified
CPT/HCPCS: 36415; 74177; 74181; 80053; 80305-QW; 81001; 81025; 82150; 83605; 83690; 83735; 85025; 85610; 86850; 86900; 86901; 96361; 96374; 96375; 96376; 99285; 99285-25; A9270-GY; G0480; J1170; J2060; J2405; J3010; J3475; J7030; J7120; Q9967

== ENCOUNTER 2018-11-12 05:26 | Inpatient (IN) | payer OTHER ==
[~2018-11-12 05:26] MED LIST: Ropivacaine 30 ML, dexAMETHasone 8 MG, EPINEPHrine 0.4 MG, Sodium Chloride 0.9% 47.6 ML NERVRT SCH
[2018-11-12] MEDS ORDERED: Acetaminophen 500 MG Tab PO ONE (05:30)
[2018-11-12] MEDS ORDERED: Scopolamine 1.5 MG Transdermal Patch TOP SCH ×2 (05:30→06:00)
[2018-11-12] MEDS ORDERED: Dextrose 5%-Lactated Ringers 1,000 ML IV SCH (06:00)
[2018-11-12] MEDS ORDERED: cefOXitin 2 GM in Sodium Chloride 0.9% 50 ML IV ONE (06:00)
[2018-11-12] MEDS ORDERED: Meropenem 500 MG SDV ONE (06:38)
[2018-11-12] MEDS ORDERED: Naloxone 0.4 MG/ML SDV IVPUSH PRN (07:19)
[2018-11-12] MEDS: HYDROmorphone/Normal Saline 15 MG/30 ML PCA IV PRN (07:38)
[2018-11-12] MEDS ORDERED: Ketamine 50 MG in Sodium Chloride 0.9% 49.5 ML IV SCH (08:00)
[2018-11-12] MEDS ORDERED: Propofol 200 MG/20 ML SDV ONE (08:30)
[2018-11-12] MEDS ORDERED: Ondansetron 4 MG/2 ML SDV IVPUSH PRN (10:48)
[2018-11-12] MEDS ORDERED: hydrOXYzine HCl 100 MG/2 ML SDV IM PRN (10:48)
[2018-11-12] MEDS: Lidocaine 0.4%/D5W 2 GM/500 ML BAG IV SCH ×2 (10:52→19:18)
[2018-11-12] MEDS ORDERED: Lactated Ringers 1,000 ML ONE (11:16)
[2018-11-12] MEDS ORDERED: Succinylcholine 200 MG/10 ML MDV ONE (11:16)
[2018-11-12] MEDS ORDERED: Rocuronium 50 MG/5 ML Vial ONE (11:16)
[2018-11-12] MEDS ORDERED: fentaNYL 250 MCG/5 ML SDV ONE ×2 (11:16)
[2018-11-12] MEDS ORDERED: Neostigmine Methylsulfate 1 MG/ML 5 ML Syringe ONE (11:16)
[2018-11-12] MEDS ORDERED: Dexamethasone 4 MG/ML SDV ONE (11:16)
[2018-11-12] MEDS ORDERED: Ondansetron 4 MG/2 ML SDV ONE (11:16)
[2018-11-12] MEDS: Dextrose 5%-Lactated Ringers 1,000 ML IV SCH ×2 (13:03→19:19)
[2018-11-12] MEDS: Pantoprazole 40 MG Vial IV SCH (13:27)
[2018-11-12] MEDS: Magnesium Sulfate/Water 2 GM in Premix Bag 1 BAG IV SCH ×2 (13:33→17:11)
[2018-11-12] MEDS: ceFAZolin 2 GM in Premix Bag 1 BAG IV SCH ×2 (13:44→21:08)
[2018-11-12] MEDS: VERIFY SCOP PATCH TOP SCH (13:46)
[2018-11-12] MEDS ORDERED: Ketamine 500 MG/5 ML MDV IV SCH (15:00)
[2018-11-12] MEDS ORDERED: Lidocaine 2% 100 MG/5 ML Syringe IVPUSH SCH (15:00)
[2018-11-13] MEDS: Magnesium Sulfate/Water 2 GM in Premix Bag 1 BAG IV SCH ×5 (00:24→23:53)
[2018-11-13] MEDS: Dextrose 5%-Lactated Ringers 1,000 ML IV SCH ×4 (00:32→23:53)
[2018-11-13] MEDS: ceFAZolin 2 GM in Premix Bag 1 BAG IV SCH (05:40)
[2018-11-13] MEDS ORDERED: [UNRECOGNIZED DRUG - OTHER] PO PRN (08:05)
[2018-11-13] MEDS: Bisacodyl 5 MG Tab PO SCH ×2 (08:54→20:25)
[2018-11-13] MEDS: Docusate Sodium 100 MG Cap PO SCH ×2 (08:54→20:25)
--- NOTE | 2018-11-13 10:15 | PN ---
DATE OF SERVICE: 11/13/2018 SUBJECTIVE: Lizette is postoperative day #1. She states her pain is controlled. She is alert and orientated. Vital signs have been stable. REVIEW OF SYSTEMS: Remainder of review of systems negative for any pertinent positives and negatives. OBJECTIVE: GENERAL: Lizette So is a pleasant 33-year-old female. VITAL SIGNS: TPR; no temperature taken since midnight, pulse 93, respirations 16, and blood pressure 113/75. HEENT: Negative. NECK: Supple. HEART: Regular rate and rhythm. LUNGS: Clear. ABDOMEN: Dressing dry and intact. Abdominal binder is on. VONDA drain intact and has drained 45 mL of a light pink serous drainage. Ayala catheter in place and draining clear terry urine. EXTREMITIES: SCDs are on. ASSESSMENT: Exploratory laparotomy with distal pancreatectomy and splenectomy, including pancreatic pseudocyst and debridement of pancreatic tissue for large pancreatic pseudocyst and division of adherence to the splenic artery and focal peripancreatic necrosis. Date of surgery 11/12/2018. Surgeon, Brandon Pappas MD. PLAN: 1. Discontinue Ayala catheter in a.m., 11/14/2018 at 0500 hours. 2. Decrease IV to 100 mL per hour. 3. Remain n.p.o. with sips of water and ice chips. 4. May shower. 5. Colace 100 mg b.i.d. 6. Dulcolax 10 mg take 2 tabs b.i.d. 7. May have rio shots p.r.n. Denies drinking in the past 3 weeks. 8. Good pulmonary toilet. 9. We will evaluate p.r.n. or in a.m. Mela Hayes PA-C /[id number]
[2018-11-13] MEDS: VERIFY SCOP PATCH TOP SCH (10:37)
[2018-11-13] MEDS: HYDROmorphone/Normal Saline 15 MG/30 ML PCA IV PRN (14:20)
[2018-11-13] MEDS: Pantoprazole 40 MG Vial IV SCH (14:28)
[2018-11-14] MEDS: Magnesium Sulfate/Water 2 GM in Premix Bag 1 BAG IV SCH ×4 (05:41→22:59)
[2018-11-14] MEDS ORDERED: Cyclobenzaprine 10 MG Tab PO PRN (07:45)
[2018-11-14] MEDS: Bisacodyl 5 MG Tab PO SCH ×2 (08:07→20:00)
[2018-11-14] MEDS: Docusate Sodium 100 MG Cap PO SCH ×2 (08:08→22:59)
[2018-11-14] MEDS: VERIFY SCOP PATCH TOP SCH (08:08)
[2018-11-14] MEDS ORDERED: ASK ABOUT SCOP PATCH ONE (09:00)
[2018-11-14] MEDS: Potassium Phosphates 20 MMOLE in Sodium Chloride 0.9% 250 ML IV SCH ×3 (10:51→18:49)
[2018-11-14] MEDS: Pantoprazole 40 MG Tab.CR PO SCH (15:38)
[2018-11-15] MEDS: Dextrose 5%-Lactated Ringers 1,000 ML IV SCH (02:08)
[2018-11-15] MEDS: Magnesium Sulfate/Water 2 GM in Premix Bag 1 BAG IV SCH (05:07)
[2018-11-15] MEDS: Acetaminophen/oxyCODONE 325-5 MG Tab PO PRN ×2 (08:38→15:26)
[2018-11-15] MEDS: Docusate Sodium 100 MG Cap PO SCH (09:23)
[2018-11-15] MEDS: Bisacodyl 5 MG Tab PO SCH (09:23)
[2018-11-15] MEDS: Pantoprazole 40 MG Tab.CR PO SCH (09:23)
--- NOTE | 2018-11-18 13:34 | PN ---
DATE OF SERVICE: 11/14/2018 The patient has been afebrile with stable vital signs. Still having quite a bit of pain, and we will increase RN FORENSIC dose somewhat and as . We will start a full liquid diet and encourage her not take too much in until her bowels get going. Otherwise, her potassium and phosphate are marginally low, however, these will be supplemented today and we will check some labs again tomorrow along with an amylase level in the VONDA drain fluid. If the bowels get going, we will likely be able to begin oral pain medicine tomorrow. Brandon Pappas MD /[id number]
--- NOTE | 2018-11-18 13:46 | PN ---
DATE OF SERVICE: 11/15/2018 The patient has been afebrile with stable vital signs. No bowel movement as of yet. She is having a little bit of flatus. We will switch her to oral pain medication today. Her VONDA drain amylase output is around 39, so we will get that out today. If she does move her bowels, we will go up to regular diet. See if potassium and phosphate are adequately corrected, and we will not need to give any additional supplementation on those items. She may be ready for discharge home tomorrow if the bowels get moving. We will continue ongoing bowel stimulation. Brandon Pappas MD /[id number]
--- NOTE | 2018-11-19 08:46 | OR ---
DATE OF PROCEDURE: 11/12/2018 SURGEON: Brandon Pappas MD PREOPERATIVE DIAGNOSES: 1. Large symptomatic pancreatic pseudocyst with dense adherence to the splenic artery. 2. Focal peripancreatic necrosis. OPERATIVE PROCEDURES: Exploratory laparotomy with: 1. Distal pancreatectomy and splenectomy, including attached pancreatic pseudocyst (87779). 2. Debridement of area of peripancreatic necrotic tissue (50213). ANESTHESIA: General. NEWSPERSON: Mela Hayes PA-C. INDICATION FOR PROCEDURE: This is a 33-year-old female presenting with increasingly painful pancreatic pseudocyst. By history, this has been related to an episode of pancreatitis somewhere around the 6- to 8-week ago range and is located in the distalmost pancreas. The splenic artery has a long area of attachment to the cyst, and there is not any obvious good connection to the stomach. The cyst wall inferiorly also appeared to be not overly well matured, making a Bob-en-Y cystojejunostomy somewhat problematic. This also may lead to possible incomplete relief of the cyst, and if any form of sepsis developed within that, she would be at risk for massive bleeding due to the adherence of the cyst wall to the splenic artery. Due to this, plan is to proceed with a distal pancreatectomy, along with excision of cyst. The likelihood of needing a splenectomy was also gone over with the patient and other procedures, such as debridement of peripancreatic necrotic tissue, would be entertained as well. Potential risks of the procedure including bleeding, infection, leaks from any GI tract closures, possible pancreatic fistula formation, the very remote possibility that the cyst might be neoplastic were all gone over, and the patient wishes to proceed. The issue of the pancreatic resection was also reviewed. This appeared to be quite limited, but she was made aware that there is some increased risk over time of developing diabetes with the tail of the pancreas being rich with the endocrine islet type cells, although the risk of pancreatic insufficiency either from the endocrine or exocrine component would be more likely to occur, should she have continued problems with alcoholism. DETAILS OF PROCEDURE: The patient was taken to the operating room and after general endotracheal anesthesia was induced, Ayala catheter was inserted, and the abdomen was prepped and draped. An upper midline incision was made and extended from just below the xiphoid to the umbilicus and carried down through the full-thickness abdominal wall. Upon entering the peritoneal cavity, the patient was noted to have no significant ascites. The area in the left upper quadrant was diffusely quite edematous. At this point, the lesser sac was opened by dividing the greater omentum and this dissection went down along the inferior aspect of the cyst and the more proximal tail of the pancreas. At this point, the splenic flexure of the colon was noted to be well away from the area of concern and ongoing dissection. At this point, it was noted that the splenic artery was extremely densely adherent to the pancreatic pseudocyst, and it was felt best at this point to proceed with a distal pancreatectomy, along with splenectomy, including the excision of the cyst. The pancreas just proximal to the cyst was then encircled. During the course of resection, the cyst did rupture, which will make it somewhat harder for the pathologist to identify and measure. There were no signs of the fluid being mucinous at all upon its rupture. Once again, the pancreas was encircled, and this was then divided with a ALMA black load. The splenic artery was then divided with ALMA link load, and at that point the superior, lateral, and inferior attachments of the spleen were divided and the complexity of the spleen cyst and distal pancreas was mobilized upward and the remaining attachments of the spleen were then divided, including the splenic vein and short gastric vessels, with the ALMA rufus and specimen delivered from the field. The area of dissection was then reviewed. No additional problems were noted. Pancreatic and splenic vessels staple lines all appeared to be intact. Those were then reinforced with 10 mL of fibrin sealant and then omentum placed over those surfaces as well. Single Cisco-Hackett drain was taken through left subcostal area and placed across the area of the pancreatic closure, and the abdomen was irrigated with meropenem-containing saline solution. Midline fascia was then approximated with #2 Vicryl stitch, subcutaneous tissue with some 3-0 Vicryl stitch, and the skin with rufus. Dressing was applied. The patient was taken to the recovery room in satisfactory condition. There were no evident complications. Physician instructional support assistant, Mela Hayes, played an essential role in assisting in this case, helping to position the patient, retract structures as needed, as well as suturing and cutting sutures when indicated. Her presence improved patient safely and decreased operative time. Brandon Pappas MD /[id number]
== END 2018-11-15 15:39 | disposition home or self-care (01) | DRG 407 ==
LOC: JP.SDS 05:26 → JP.SDSSCHI 05:26 → EDSTATUS 07:15 → JP.MS 10:30
PROVIDERS: ADMIT Surgery; ATTEND Surgery
PROC: 0FBG0ZZ Excision of Pancreas, Open Approach (ICD-10-PCS; principal; 2018-11-12)
PROC: 07BP0ZZ Excision of Spleen, Open Approach (ICD-10-PCS; 2018-11-12)
DX: K86.3 Pseudocyst of pancreas (principal); K21.9 Gastro-esophageal reflux disease without esophagitis; Z88.8 Allergy status to other drugs, medicaments and biological substances; F17.210 Nicotine dependence, cigarettes, uncomplicated; K86.89 Other specified diseases of pancreas
CPT/HCPCS: 36415; 80053; 81025; 82150; 83735; 84100; 85027; 86850; 86900; 86901; 88307; 88309; 94762; A9270-GY; C9113; J0171; J0330; J0690; J0694; J1100; J1170; J2001; J2185; J2405; J2704; J2710; J2795; J3010; J3410; J3475; J3490; J7042; J7050; J7120

== ENCOUNTER 2019-09-13 14:52 | Emergency (ER) | payer OTHER ==
[2019-09-13] MEDS ORDERED: diphenhydrAMINE 50 MG/ML SDV IVPUSH ONE (16:14)
[2019-09-13] MEDS ORDERED: Sodium Chloride 0.9% 1,000 ML IV SCH (16:15)
[2019-09-13] MEDS ORDERED: Prochlorperazine 10 MG/2 ML SDV IVPUSH ONE (16:15)
[2019-09-13] MEDS ORDERED: Ketorolac 30 MG/ML SDV IVPUSH ONE (16:15)
--- NOTE | 2019-09-13 16:17 | EDM.PDOC ---
ED HPI GENERAL MEDICAL PROBLEM - General Chief Complaint: Headache Stated Complaint: HEADACHE,LEFT SIDE NUMBNESS/TINGLING Time Seen by Provider: 09/13/19 16:17 Source of Information: Reports: Patient History Limitations: Reports: No Limitations - History of Present Illness INITIAL COMMENTS - FREE TEXT/NARRATIVE: pt arrived with a severe left sided heasdache. She also has pain in the left post cervical area. She has been nauseated. She does not have lite sensitivity. Onset: Gradual, Other (pt has had problems ffor 6 days. ) Duration: Hour(s): Location: Reports: Head Associated Symptoms: Reports: Headaches, Other (pt states she is not a person who gets headaches. She does have some history of migraines in the family. ) Headache Pain Score (Numeric/FACES): 5 - Related Data Allergies Allergy/AdvReac Type Severity Reaction Status Date / Time gabapentin Allergy Hallucinati Verified 11/11/18 13:43 ons Home Meds: Home Meds Calcium Carb/Magnesium Oxid/D3 [Calcium Magnesium + D] 1 tab PO DAILY 11/11/18 [History] Magnesium 250 mg PO DAILY 11/11/18 [History] Ketorolac [Toradol] 10 mg PO Q6H PRN 09/13/19 [History] Ondansetron [Zofran ODT] 4 mg BUCCAL Q6H PRN 09/13/19 [History] Past Medical History - Past Health History Medical/Surgical History: Denies Medical/Surgical History Gastrointestinal History: Reports: GERD, Pancreatitis [employer] History: Reports: Neurological History: Reports: None Psychiatric History: Reports: Addiction - Infectious Disease History Infectious Disease History: Reports: Mumps - Past Surgical History GI Surgical History: Reports: EGD, Other (See Below) Other GI Surgeries/Procedures: SPLEENECTOMY Neurological Surgical History: Reports: Scoliosis Social & Family History - Family History Family Medical History: Noncontributory - Tobacco Use Smoking Status *Q: Current Every Day Smoker Years of Tobacco use: 15 Packs/Tins Daily: 0.5 - Caffeine Use Caffeine Use: Reports: Coffee, Soda - Recreational Drug Use Recreational Drug Use: No ED ROS GENERAL - Review of Systems Review Of Systems: See Below Constitutional: Reports: Decreased Appetite, Other (pt has had nausea. ) HEENT: Reports: No Symptoms Respiratory: Reports: No Symptoms Cardiovascular: Reports: No Symptoms Endocrine: Reports: No Symptoms GI/Abdominal: Reports: No Symptoms : Reports: No Symptoms Musculoskeletal: Reports: Neck Pain, Other (pt has pain in the left post cervical area. ) Skin: Reports: No Symptoms Neurological: Reports: Headache Psychiatric: Reports: Other (pt had the numbness on the kleft side of the tongue. ) - Physical Exam Exam: See Below Text/Narrative:: pt arrived with a left sided headache. She has numness on the left side of her tongue. She has severe muscle spasm in the left post cervical area. Exam Limited By: No Limitations General Appearance: Alert, Anxious, Moderate Distress, Other (pupils are equal and reactive. ) Ears: Normal TMs Nose: Normal Inspection Throat/Mouth: Normal Inspection Head Exam: Atraumatic Neck: Other (pt has marked muscle spasm in the left post cervical area. ) Respiratory/Chest: No Respiratory Distress Cardiovascular: Regular Rate, Rhythm (Female) Exam: Deferred Rectal (Female) Exam: Deferred Neuro Exam (Abbreviated): Alert, Oriented, Normal Cognition Back Exam: Normal Inspection Extremities: Normal Inspection Psychiatric: Anxious Course - Vital Signs Last Recorded V/S: Last Vital Signs Temp 36.7 C 09/13/19 15:58 Pulse 66 09/13/19 15:58 Resp 16 09/13/19 15:58 BP 117/61 09/13/19 15:58 Pulse Ox 97 09/13/19 15:58 - Orders/Labs/Meds Orders: Active Orders 24 hr Category Date Time Status Sodium Chloride 0.9% [Normal Saline] 1,000 ml Med 09/13/19 16:15 Active IV ASDIRECTED Medication Orders Sodium Chloride (Normal Saline) 1,000 mls @ 999 mls/hr IV ASDIRECTED JUANA Last Admin: 09/13/19 17:29 Dose: 999 mls/hr Documented by: MIREYA Meds: Medications Generic Name Dose Route Start Last Admin Trade Name Freq PRN Reason Stop Dose Admin Sodium Chloride 1,000 mls @ 999 mls/hr 09/13/19 16:15 09/13/19 17:29 Normal Saline IV 999 mls/hr ASDIRECTED JUANA Administration Discontinued Medications Generic Name Dose Route Start Last Admin Trade Name Freq PRN Reason Stop Dose Admin Diphenhydramine HCl 25 mg 09/13/19 16:14 09/13/19 16:48 Benadryl IVPUSH 09/13/19 16:15 25 mg ONETIME ONE Administration Ketorolac Tromethamine 30 mg 09/13/19 16:15 09/13/19 16:39 Toradol IVPUSH 09/13/19 16:16 30 mg ONETIME ONE Administration Prochlorperazine Edisylate 10 mg 09/13/19 16:15 09/13/19 16:44 Compazine IVPUSH 09/13/19 16:16 10 mg ONETIME ONE Administration - Re-Assessments/Exams Free Text/Narrative Re-Assessment/Exam: 09/13/19 18:09 because of the numbness on the left side of her tongue a cat scan of the head was done. The scan was normal. Her lab work looked good. She had an iv started and she was given torodol 30mg, comazine 10 mg and benadryl 25 mg. She is feeling much beyter. She was given percocet 5/325 prior to leaving. She could follow up with her regular Dr if further problems. l Departure - Departure Time of Disposition: 17:57 Disposition: Home, Self-Care 01 Condition: Fair Clinical Impression: Muscle tension headache - Discharge Information Referrals: Esperanza Hanks MD [Primary Care Provider] - Forms: ED Department Discharge Care Plan Goals: moist warm packs to the left post cervical area, use the flexeril 1/2 tab bid to help with relaxation of muscle-- she has these at home. rest and low activity tonight. If pt has persistent numbness she may need further studies. Sepsis Event Note (ED) - Evaluation Sepsis Screening Result: No Definite Risk - Focused Exam Vital Signs: Vital Signs Temp Pulse Resp BP Pulse Ox 09/13/19 15:58 36.7 C 66 16 117/61 97 09/13/19 15:32 36.7 C 66 16 117/61 97 - My Orders Last 24 Hours: My Active Orders 09/13/19 16:15 Sodium Chloride 0.9% [Normal Saline] 1,000 ml IV ASDIRECTED - Assessment/Plan Last 24 Hours: My Active Orders 09/13/19 16:15 Sodium Chloride 0.9% [Normal Saline] 1,000 ml IV ASDIRECTED
--- NOTE | 2019-09-13 17:34 | CRLCT ---
INDICATION : Headaches. Symptoms for 6 days. TECHNIQUE : Noncontrast CT scan of brain. Axial images. Bone windows. COMPARISON: No comparisons. FINDINGS : No acute intra or extra-axial hemorrhage. The ventricles and sulci are normal size, shape and configuration. No visualized intracranial mass or additional abnormal attenuation. Bony calvarium is intact. The visualized paranasal sinuses are clear. IMPRESSION : No visualized acute intracranial radiographic abnormality. No change previous. Please note that all CT scans at this facility use dose modulation, iterative reconstruction, and/or weight-based dosing when appropriate to reduce radiation dose to as low as reasonably achievable. Dictated by Seymour Ash MD @ Sep 13 2019 5:30PM Signed by Dr. Seymour Ash @ Sep 13 2019 5:33PM
[2019-09-13] MEDS ORDERED: Acetaminophen/oxyCODONE 325-5 MG Tab PO ONE (18:05)
== END 2019-09-13 18:10 | disposition home or self-care (01) ==
LOC: JP.ED 14:52
DX: G44.209 Tension-type headache, unspecified, not intractable (principal); F17.210 Nicotine dependence, cigarettes, uncomplicated; Z88.8 Allergy status to other drugs, medicaments and biological substances
CPT/HCPCS: 70450; 96374; 96375; 99284; J0780; J1200; J1885; J7030

== ENCOUNTER 2021-05-17 05:33 | Day surgery (SDC) | payer OTHER ==
[2021-05-17] MEDS ORDERED: Dextrose 5%-Lactated Ringers 1,000 ML IV SCH (07:00)
[2021-05-17] MEDS ORDERED: Midazolam 1 MG/ML 2 ML SDV ONE (07:04)
[2021-05-17] MEDS ORDERED: Propofol 200 MG/20 ML SDV ONE (07:04)
[2021-05-17] MEDS ORDERED: fentaNYL 100 MCG/2 ML SDV ONE (07:04)
[2021-05-17] MEDS ORDERED: Glycopyrrolate 0.2 MG/ML 2 ML SDV IVPUSH ONE (07:15)
[2021-05-17] MEDS ORDERED: Pantoprazole 40 MG Vial IVPUSH ONE (07:32)
== END 2021-05-17 08:30 | disposition home or self-care (01) ==
LOC: JP.SDS 05:33
PROVIDERS: ATTEND Surgery
DX: K29.60 Other gastritis without bleeding (principal); K29.80 Duodenitis without bleeding; F17.200 Nicotine dependence, unspecified, uncomplicated; K21.9 Gastro-esophageal reflux disease without esophagitis; Z88.8 Allergy status to other drugs, medicaments and biological substances
CPT/HCPCS: 81025; 87081; C9113; J2250; J2704; J3010; J7121

== ENCOUNTER 2021-09-04 08:41 | Inpatient (IN) | payer OTHER ==
[2021-09-04] MEDS ORDERED: Acetaminophen 500 MG Tab PO ONE (09:15)
[2021-09-04] MEDS ORDERED: ceFAZolin 2 GM in Premix Bag 1 BAG IV ONE (09:15)
[2021-09-04] MEDS ORDERED: Scopolamine 1.5 MG Transdermal Patch TOP SCH (09:30)
[2021-09-04] MEDS ORDERED: Albuterol/Ipratropium 3.0-0.5 MG/3 ML Neb Soln NEB ONE (09:32)
[2021-09-04] MEDS: Dextrose 5%-Lactated Ringers 1,000 ML IV SCH ×2 (10:02→20:38)
[2021-09-04] MEDS ORDERED: Ketamine 17 MG in Sodium Chloride 0.9% 19.83 ML IV SCH (10:30)
[2021-09-04] MEDS ORDERED: Ketamine 500 MG/5 ML MDV IV SCH (10:30)
[2021-09-04] MEDS ORDERED: fentaNYL 250 MCG/5 ML SDV ONE ×2 (10:39→11:35)
[2021-09-04] MEDS ORDERED: Propofol 200 MG/20 ML SDV ONE (10:40)
[2021-09-04] MEDS ORDERED: Rocuronium 50 MG/5 ML Vial ONE (10:40)
[2021-09-04] MEDS ORDERED: Ondansetron 4 MG/2 ML SDV ONE (10:40)
[2021-09-04] MEDS ORDERED: Succinylcholine 200 MG/10 ML MDV ONE (10:40)
[2021-09-04] MEDS ORDERED: Glycopyrrolate 0.2 MG/ML 5 ML MDV ONE (10:40)
[2021-09-04] MEDS ORDERED: Neostigmine Methylsulfate 1 MG/ML 5 ML Syringe ONE (10:40)
[2021-09-04] MEDS ORDERED: Dexamethasone 4 MG/ML SDV ONE (10:40)
[2021-09-04] MEDS ORDERED: Linezolid 600 MG/300 ML Premix Bag IRR ONE (11:40)
[2021-09-04] MEDS ORDERED: Lactated Ringers 1,000 ML ONE (13:06)
[2021-09-04] MEDS ORDERED: Labetalol 20 MG/4 ML Syringe ONE (13:12)
[2021-09-04] MEDS ORDERED: Naloxone 0.4 MG/ML SDV IVPUSH PRN (14:06)
[2021-09-04] MEDS ORDERED: Ondansetron 4 MG/2 ML SDV IVPUSH PRN ×2 (14:06→16:00)
[2021-09-04] MEDS ORDERED: diphenhydrAMINE 25 MG Cap PO PRN (14:06)
[2021-09-04] MEDS ORDERED: diphenhydrAMINE 50 MG/ML SDV IVPUSH PRN (14:06)
[2021-09-04] MEDS: HYDROmorphone/Normal Saline 6 MG/30 ML PCA Vial IV PRN (14:17)
[2021-09-04] MEDS ORDERED: Naloxone 0.4 MG/ML SDV IV PRN (15:00)
[2021-09-04] MEDS: SCOPOLAMINE PATCH CHECK TOP SCH (15:54)
[2021-09-04] MEDS: Acetaminophen 325 MG Tab PO SCH ×2 (16:22→21:30)
[2021-09-04] MEDS: ceFAZolin 2 GM in Premix Bag 1 BAG IV SCH (17:26)
[2021-09-04] MEDS: CHANTIX 1 MG PO SCH (21:29)
[2021-09-04] MEDS: Topiramate 25 MG Tab PO SCH (21:30)
[2021-09-04] MEDS ORDERED: Benzocaine/Cetylpyridinium/Menthol Lozenge MUCMEM PRN (21:45)
[2021-09-05] MEDS: ceFAZolin 2 GM in Premix Bag 1 BAG IV SCH ×3 (01:03→10:44)
[2021-09-05] MEDS: HYDROmorphone/Normal Saline 6 MG/30 ML PCA Vial IV PRN (03:40)
[2021-09-05] MEDS: Acetaminophen 325 MG Tab PO SCH ×4 (03:46→22:00)
[2021-09-05] MEDS: Dextrose 5%-Lactated Ringers 1,000 ML IV SCH (07:18)
[2021-09-05] MEDS: Pantoprazole 40 MG Tab.CR PO SCH (09:46)
[2021-09-05] MEDS: CHANTIX 1 MG PO SCH ×2 (09:46→21:59)
[2021-09-05] MEDS: SCOPOLAMINE PATCH CHECK TOP SCH (09:47)
[2021-09-05] MEDS ORDERED: Magnesium Sulfate/Water 2 GM in Premix Bag 1 BAG IV SCH (10:00)
[2021-09-05] MEDS: Topiramate 25 MG Tab PO SCH ×2 (10:23→22:00)
[2021-09-05] MEDS: HYDROmorphone 2 MG Tab PO PRN ×4 (10:50→23:30)
[2021-09-06] MEDS: Acetaminophen 325 MG Tab PO SCH ×4 (03:31→21:35)
[2021-09-06] MEDS: HYDROmorphone 2 MG Tab PO PRN ×5 (03:32→20:02)
[2021-09-06] MEDS: Calcium Carbonate 500 MG Tab.Chew PO PRN (06:26)
[2021-09-06] MEDS: Pantoprazole 40 MG Tab.CR PO SCH (07:32)
[2021-09-06] MEDS ORDERED: Sodium Chloride 0.9% 1,000 ML IV SCH (07:45)
[2021-09-06] MEDS ORDERED: hydrOXYzine HCl 25 MG Tab PO PRN (07:48)
[2021-09-06] MEDS: SCOPOLAMINE PATCH CHECK TOP SCH ×2 (08:01→08:03)
[2021-09-06] MEDS: Topiramate 25 MG Tab PO SCH ×2 (08:08→21:35)
[2021-09-06] MEDS: CHANTIX 1 MG PO SCH ×2 (08:09→21:35)
[2021-09-06] MEDS ORDERED: POTASSIUM ACETATE IV ONE (09:00)
[2021-09-06] MEDS ORDERED: SODIUM CHLORIDE 0.9% IV ONE (09:00)
[2021-09-06] MEDS: Magnesium Sulfate/Water 2 GM/50 ML BAG IV SCH ×3 (09:16→20:04)
[2021-09-07] MEDS: Calcium Carbonate 500 MG Tab.Chew PO PRN ×2 (00:05→08:28)
[2021-09-07] MEDS: HYDROmorphone 2 MG Tab PO PRN ×3 (00:05→08:28)
[2021-09-07] MEDS: Magnesium Sulfate/Water 2 GM/50 ML BAG IV SCH ×2 (02:50→08:26)
[2021-09-07] MEDS: Acetaminophen 325 MG Tab PO SCH ×2 (04:14→10:36)
[2021-09-07 05:03] LABS: ESTIMATED GFR 98 mL/min (>60)
[2021-09-07] MEDS: Pantoprazole 40 MG Tab.CR PO SCH (07:26)
[2021-09-07] MEDS ORDERED: Levothyroxine 25 MCG Tab PO SCH (07:30)
[2021-09-07] MEDS ORDERED: Levothyroxine 100 MCG, Levothyroxine 25 MCG PO SCH ×2 (07:30)
[2021-09-07] MEDS: CHANTIX 1 MG PO SCH (08:28)
[2021-09-07] MEDS: Topiramate 25 MG Tab PO SCH (08:31)
[2021-09-07] MEDS ORDERED: Magnesium Oxide 400 MG Tab PO SCH (09:00)
== END 2021-09-07 11:15 | disposition home or self-care (01) | DRG 627 ==
LOC: JP.SDS 08:41 → EDSTATUS 10:00 → JP.MS 14:45 → UNDOADMIN 14:45 → JP.MS 09-05 11:42 → UNDODISIN 09-07 11:15
PROVIDERS: ADMIT Surgery; ATTEND Surgery
PROC: 0GTK0ZZ Resection of Thyroid Gland, Open Approach (ICD-10-PCS; principal; 2021-09-04)
DX: C73 Malignant neoplasm of thyroid gland (principal); F17.210 Nicotine dependence, cigarettes, uncomplicated; Z88.8 Allergy status to other drugs, medicaments and biological substances
CPT/HCPCS: 36415; 80048; 80053; 83735; 84100; 88307; 94640; A9270-GY; J0330; J0690; J1100; J1170; J2020; J2405; J2704; J2710; J3010; J3475; J3490; J7030; J7120; J7121; J7620